=== PATIENT | female | born 1990 | race Caucasian/White ===

== ENCOUNTER → 2018-04-18 | Outpatient (CLI) | payer SELFPAY | LOC: LAB 11:20 | DX: J02.9 Acute pharyngitis, unspecified (principal) ==

== ENCOUNTER → 2019-01-11 | Outpatient (CLI) | payer SELFPAY ==
[2019-01-11 15:39] LABS: BASO # 0.1 (0.02-0.10); EOS # 0.4 (0.04-0.40); EOS % 4.3 % (1.0-5.0); HEMATOCRIT 45.6 % (37.0-47.0); HEMOGLOBIN 14.7 g/dL (12.5-16.0); LYMPH# 2.6 (1.50-4.00); MEAN CELL VOLUME 91 fl (78-100); MEAN CORPUSCULAR HEMOGLOBIN 29 pg (27-31); MEAN CORPUSCULAR HGB CONC 32 g/dL (33-37); MEAN PLATELET VOLUME 9.9 fl (7.4-10.4); MONO # 0.8 (0.20-0.80); NEU # 4.6 (1.40-6.50); PLATELET COUNT 287 K/mm3 (130-400); RED BLOOD COUNT 5.03 M/mm3 (4.10-5.30); WHITE BLOOD COUNT 8.4 K/mm3 (4.8-10.8)
== END ==
LOC: LAB 15:27
PROVIDERS: Physician Assistant
DX: K62.5 Hemorrhage of anus and rectum (principal)

== ENCOUNTER → 2019-07-29 | Outpatient (CLI) | payer SELFPAY | LOC: LAB 15:26 | DX: N39.0 Urinary tract infection, site not specified (principal) ==

== ENCOUNTER → 2020-01-15 | Outpatient (CLI) | payer SELFPAY | LOC: LAB 18:00 | DX: R14.0 Abdominal distension (gaseous) (principal) ==

== ENCOUNTER → 2020-01-24 | Outpatient (CLI) | payer SELFPAY | LOC: LAB 09:39 | DX: J34.89 Other specified disorders of nose and nasal sinuses (principal); R11.0 Nausea; R05 Cough; R63.0 Anorexia; R19.7 Diarrhea, unspecified; R51 Headache; M79.0 Rheumatism, unspecified; R53.83 Other fatigue; Z20.828 Contact with and (suspected) exposure to other viral communicable diseases ==

== ENCOUNTER → 2020-04-14 | Outpatient (CLI) | payer BC | LOC: LAB 12:03 | DX: U07.1 COVID-19 (principal) ==

== ENCOUNTER → 2020-05-21 | Day surgery (SDC) | payer BC | LOC: MSO 05-18 13:07 | DX: K92.1 Melena (principal); R19.7 Diarrhea, unspecified; F41.9 Anxiety disorder, unspecified; F98.8 Other specified behavioral and emotional disorders with onset usually occurring in childhood and adolescence; F17.210 Nicotine dependence, cigarettes, uncomplicated | CPT/HCPCS: 00813; J2704; J7120 ==

== ENCOUNTER → 2020-08-04 | Outpatient (CLI) | payer BC | LOC: LAB 11:49 | DX: R30.9 Painful micturition, unspecified (principal) ==

== ENCOUNTER → 2020-11-07 | Outpatient (CLI) | payer BC ==
[2020-11-07 09:08] LABS: ALBUMIN 4.2 g/dL (3.5-5.0); POTASSIUM 4.1 mmol/L (3.5-5.1)
[2020-11-07 09:10] LABS: CALCIUM 9.3 mg/dL (8.3-10.5)
[2020-11-07 09:11] LABS: HEMATOCRIT 46.3 % (37.0-47.0); HEMOGLOBIN 15.1 g/dL (12.5-16.0); MEAN PLATELET VOLUME 10.1 fl (7.4-10.4); RED BLOOD COUNT 5.14 M/mm3 (4.10-5.30); RED CELL DISTRIBUTION WIDTH 13.9 % (11.5-14.5); TOTAL PROTEIN 7.2 g/dL (6.4-8.3); WHITE BLOOD COUNT 6.2 K/mm3 (4.8-10.8)
[2020-11-07 09:13] LABS: TOTAL BILIRUBIN 0.6 mg/dL (0.2-1.2)
== END ==
LOC: LAB 08:28
PROVIDERS: Family Medicine
DX: I10 Essential (primary) hypertension (principal)

== ENCOUNTER → 2020-12-02 | Outpatient (CLI) | payer BC | LOC: LAB 15:00 | DX: Z20.822 Contact with and (suspected) exposure to COVID-19 (principal) ==

== ENCOUNTER → 2020-12-31 | Outpatient (CLI) | payer BC ==
[2020-12-31 17:31] LABS: URINE APPEARANCE HAZY; URINE BILIRUBIN NEGATIVE (NEGATIVE); URINE BLOOD TRACE (NEGATIVE); URINE COLOR YELLOW; URINE GLUCOSE NEGATIVE (NEGATIVE); URINE KETONE NEGATIVE (NEGATIVE); URINE LEUKOCYTE ESTERASE TRACE (NEGATIVE); URINE NITRATE NEGATIVE (NEGATIVE); URINE PROTEIN(semi-quant) NEGATIVE (NEGATIVE); URINE UROBILINOGEN NORMAL (NORMAL)
== END ==
LOC: LAB 16:40
PROVIDERS: Family Medicine
DX: R30.0 Dysuria (principal)

== ENCOUNTER → 2021-01-26 | Outpatient (CLI) | payer BC ==
[2021-01-29 14:34] LABS: ANAPLASMA PHAGOCYTOPHILUM PCR Negative (Negative); EHRLICHIA CHAFFEENSIS AB PCR Negative (Negative); EHRLICHIA EWINGII/CANIS PCR Negative (Negative)
== END ==
LOC: LAB 14:48
PROVIDERS: Nurse Practitioner
DX: Z00.00 Encounter for general adult medical examination without abnormal findings (principal); W57.XXXA Bitten or stung by nonvenomous insect and other nonvenomous arthropods, initial encounter

== ENCOUNTER → 2021-02-03 | Outpatient (CLI) | payer BC | LOC: LAB 16:42 | DX: T14.8XXA Other injury of unspecified body region, initial encounter (principal); W57.XXXA Bitten or stung by nonvenomous insect and other nonvenomous arthropods, initial encounter ==

== ENCOUNTER → 2021-04-14 | Outpatient (CLI) | payer BC | LOC: RAD 16:13 | DX: M67.833 Other specified disorders of tendon, right wrist (principal); M25.531 Pain in right wrist ==

== ENCOUNTER → 2021-05-26 | Outpatient (CLI) | payer BC ==
[2021-05-28 10:46] LABS: ANA SCREEN with REFLEX Negative (Negative)
== END ==
LOC: LAB 16:52
PROVIDERS: Family Medicine
DX: M67.833 Other specified disorders of tendon, right wrist (principal)

== ENCOUNTER → 2022-08-23 | Outpatient (CLI) | payer SELFPAY ==
[~2022-08-23] MED LIST: NORCO 325 MG-51 TA1 PO; PREDNISONE20 MG PO
== END ==
LOC: RAD 12:26
DX: R51.9 Headache, unspecified (principal); R20.0 Anesthesia of skin; R20.2 Paresthesia of skin; R41.3 Other amnesia
CPT/HCPCS: A9575

== ENCOUNTER → 2022-09-29 | Outpatient (CLI) | payer SELFPAY ==
[2022-09-29 14:59] LABS: BASO # 0.03 K/mm3 (0.02-0.10); EOS # 0.07 K/mm3 (0.04-0.40); HEMATOCRIT 42.6 % (37.0-47.0); HEMOGLOBIN 13.6 g/dL (12.5-16.0); LYMPH# 2.11 K/mm3 (1.50-4.00); MEAN CELL VOLUME 90 fl (78-100); MEAN CORPUSCULAR HEMOGLOBIN 29 pg (27-31); MEAN CORPUSCULAR HGB CONC 32 g/dL (33-37); MEAN PLATELET VOLUME 9.5 fl (7.4-10.4); MONO # 0.53 K/mm3 (0.20-0.80); NEU # 4.13 K/mm3 (1.40-6.50); PLATELET COUNT 310 K/mm3 (130-400); RED BLOOD COUNT 4.71 M/mm3 (4.10-5.30); RED CELL DISTRIBUTION WIDTH 14.4 % (11.5-14.5); WHITE BLOOD COUNT 6.9 K/mm3 (4.8-10.8)
[2022-09-29 15:15] LABS: ALBUMIN 4.2 g/dL (3.5-5.0); POTASSIUM 4.1 mmol/L (3.5-5.1)
[2022-09-29 15:18] LABS: TOTAL PROTEIN 6.1 g/dL (6.4-8.3)
[2022-09-29 15:20] LABS: TOTAL BILIRUBIN 0.4 mg/dL (0.2-1.2)
== END ==
LOC: LAB 14:39
PROVIDERS: Nurse Practitioner
DX: G37.9 Demyelinating disease of central nervous system, unspecified (principal)

== ENCOUNTER → 2024-05-14 | Outpatient (CLI) | payer SELFPAY | LOC: LAB 16:08 | DX: R51.9 Headache, unspecified (principal) ==

== ENCOUNTER → 2024-05-31 | Outpatient (CLI) | payer SELFPAY ==
[2024-05-31 14:52] LABS: BASO # 0.03 K/mm3 (0.02-0.10); EOS # 0.23 K/mm3 (0.04-0.40); EOS % 2.6 % (1.0-5.0); HEMATOCRIT 42.7 % (37.0-47.0); LYMPH# 2.62 K/mm3 (1.50-4.00); MEAN CELL VOLUME 89 fl (78-100); MEAN CORPUSCULAR HEMOGLOBIN 29 pg (27-31); MEAN CORPUSCULAR HGB CONC 33 g/dL (33-37); MEAN PLATELET VOLUME 9.8 fl (7.4-10.4); MONO # 0.72 K/mm3 (0.20-0.80); NEU # 5.14 K/mm3 (1.40-6.50); PLATELET COUNT 338 K/mm3 (130-400); RED BLOOD COUNT 4.79 M/mm3 (4.10-5.30); RED CELL DISTRIBUTION WIDTH 13.8 % (11.5-14.5); WHITE BLOOD COUNT 8.8 K/mm3 (4.8-10.8)
[2024-05-31 15:02] LABS: TOTAL BILIRUBIN 0.2 mg/dL (0.2-1.2)
[2024-05-31 15:06] LABS: ALBUMIN 4.1 g/dL (3.5-5.0)
[2024-05-31 15:07] LABS: CALCIUM 9.1 mg/dL (8.3-10.5)
[2024-05-31 15:09] LABS: TOTAL PROTEIN 6.5 g/dL (6.4-8.3)
== END ==
LOC: LAB 14:38
PROVIDERS: Nurse Practitioner
DX: Z00.00 Encounter for general adult medical examination without abnormal findings (principal); Z13.220 Encounter for screening for lipoid disorders; E55.9 Vitamin D deficiency, unspecified; R63.5 Abnormal weight gain